=== PATIENT | male | born 1950 | race American Indian/Alaskan Native ===

== ENCOUNTER 2019-01-09 13:01 | Inpatient (IN) | payer MEDICARE ==
[2019-01-09] MEDS ORDERED: VALIUM IV ONE (13:25)
[2019-01-09] MEDS ORDERED: ATIVAN IV PRN ×2 (13:25)
--- NOTE | 2019-01-09 13:28 | Emergency Department Report ---
ED General Adult HPI - General Chief complaint: Seizure Stated complaint: SEIZURE Time Seen by Provider: 01/09/19 13:20 Source: patient, family, EMS (verbal report received from EMS.ems notes not available at time of chart dictation), RN notes reviewed, old records reviewed Mode of arrival: Stretcher Limitations: Physical Limitation - History of Present Illness Initial comments: This is a 68-year-old gentleman. His past medical history includes alcohol dependence, alcohol withdrawal seizure, and I have evaluated him in the past. Please see my note from 11/08/2016. The patient is brought to the hospital by EMS. His daughter contacted 911 becau se the patient was seizing in bed. There is no history of trauma. Patient indicates he did not fall. This is corroborated by EMS and by daughter. His last drink was yesterday. He typically drinks at least a sixpack every day. He denies physical pain at this time. He is not nauseous, he denies chest pain, he denies abdominal pain, he denies homicidality, suicidality. The patient is not quite certain if he is interested in detox therapy at this time. He does admit to feeling shaky and tremulous. -: Sudden Severity scale (0 -10): 0 Consistency: now resolved Improves with: none Worsens with: none - Related Data Previous Rx's Medication Instructions Recorded Last Taken Type Folic Acid [Folvite] 1 mg PO QDAY #30 tablet 11/10/16 Unknown Rx Multivitamin Tab [Multiple Vitamin 1 each PO QDAY #30 tablet 11/10/16 Unknown Rx TAB (Theragran)] Thiamine [Vitamin B-1] 100 mg PO QDAY #30 tablet 11/10/16 Unknown Rx Allergies Allergy/AdvReac Type Severity Reaction Status Date / Time No Known Allergies Allergy Verified 11/08/16 12:38 ED Review of Systems ROS: Stated complaint: SEIZURE Other details as noted in HPI Constitutional: malaise Eyes: denies: eye discharge ENT: denies: epistaxis Cardiovascular: denies: chest pain Gastrointestinal: denies: abdominal pain, nausea, vomiting Genitourinary: denies: dysuria Musculoskeletal: denies: back pain Skin: denies: lesions Neurological: weakness Psychiatric: denies: homicidal thoughts, suicidal thoughts ED Past Medical Hx - Past Medical History Previous Medical History?: Yes Hx Hypertension: Yes Hx Congestive Heart Failure: No Hx Diabetes: No Hx Asthma: No Hx COPD: No Additional medical history: alcohol withdrawal - Surgical History Past Surgical History?: No - Social History Smoking Status: Never Smoker Substance Use Type: Alcohol - Medications Home Medications: Home Medications Medication Instructions Recorded Confirmed Last Taken Type Folic Acid [Folvite] 1 mg PO QDAY #30 tablet 11/10/16 Unknown Rx Multivitamin Tab [Multiple Vitamin 1 each PO QDAY #30 tablet 11/10/16 Unknown Rx TAB (Theragran)] Thiamine [Vitamin B-1] 100 mg PO QDAY #30 tablet 11/10/16 Unknown Rx ED Physical Exam - General Limitations: No Limitations, Physical Limitation General appearance: alert, anxious - Head Head exam: Present: atraumatic, normocephalic - Eye Eye exam: Present: normal appearance, PERRL, EOMI. Absent: nystagmus - ENT ENT exam: Present: normal exam, normal orophraynx, mucous membranes dry, normal external ear exam - Neck Neck exam: Present: normal inspection, full ROM. Absent: tenderness, meningismus - Respiratory Respiratory exam: Present: normal lung sounds bilaterally. Absent: respiratory distress - Cardiovascular Cardiovascular Exam: Present: normal rhythm, tachycardia, normal heart sounds. Absent: systolic murmur, diastolic murmur, rubs, gallop - GI/Abdominal GI/Abdominal exam: Present: soft. Absent: distended, tenderness, guarding, rebound, rigid, pulsatile mass - Rectal Rectal exam: Present: deferred - Extremities Exam Extremities exam: Present: normal inspection, full ROM, other (2+ pulses noted in the bilateral upper, lower extremities. Compartments soft. No long bony tenderness. The pelvis is stable.). Absent: pedal edema, joint swelling, calf tenderness - Back Exam Back exam: Present: normal inspection, full ROM. Absent: tenderness, CVA tenderness (R), paraspinal tenderness, vertebral tenderness - Neurological Exam Neurological exam: Present: alert (patient has tremors in upper and lower extremities. Tongue fasciculations noted.), oriented X3, other (2+ pulses noted in the bilateral upper, lower extremities. Compartments soft. No long bony tenderness. The pelvis is stable.). Absent: motor sensory deficit - Psychiatric Psychiatric exam: Present: anxious. Absent: homicidal ideation, suicidal ideation - Skin Skin exam: Present: warm, dry, intact, normal color. Absent: rash ED Course Vital Signs 01/09/19 01/09/19 01/09/19 13:16 13:28 13:30 Temperature 99.1 F Pulse Rate 127 H 93 H Respiratory 16 13 12 Rate Blood Pressure 162/78 Blood Pressure 168/95 [Right] O2 Sat by Pulse 99 99 98 Oximetry - Reevaluation(s) Reevaluation #1: 01/09/19 13:38 Differential diagnosis, including not limited to: Alcohol withdrawal seizure, dehydration, pneumonia, urinary tract infection, electrolyte derangement, intracranial lesion Assessment and plan: 68-year-old gentleman, clinically sober at this time, no history of trauma, known history of alcohol withdrawal seizures. The patient has a low-grade temperature, and is tachycardic. He is not encephalopathic at this time. He exhibits decision-making capacity at this time. I have recommended admission to the hospital for presumed severe alcohol withdrawal. We will obtain screening laboratory studies, urinalysis, EKG, noncontrast CT scan of the brain. Discussed with the patient and family, who verbalized understanding. He will be started on alcohol withdrawal protocol, and he will be given 5 mg of Valium. Does not meet 1013 criteria this time. 01/09/19 13:43 Reevaluation #2: 01/09/19 14:[address] scan of the brain is negative for acute disease. X-ray of the chest was negative for acute disease. Reevaluation #3: 01/09/19 14:41 Laboratory studies reviewed and appreciated. Lactic acidosis likely secondary to alcohol withdrawal. Do not suspect invasive bacterial illness at this time. May also be secondary to starvation. Hypomagnesemia noted. Hyperammonemia noted. Hospital physician, Dr. Schumacher has accepted the patient to the [facility]. ED Medical Decision Making - Lab Data Result diagrams: 01/09/19 13:23 01/09/19 13:29 Vital Signs 01/09/19 13:16 Temperature 99.1 F Pulse Rate 127 H Respiratory 16 Rate Blood Pressure 168/95 [Right] O2 Sat by Pulse 99 Oximetry - EKG Data EKG shows normal: sinus rhythm Rate: tachycardia - EKG Data 01/09/19 13:44 Sinus rhythm, 86 bpm, left axis deviation, QTC prolonged, ST elevation, left ventricular hypertrophy, abnormal EKG, not complaining of chest pain, appears unchanged from prior EKG from 11/08/2016. - Radiology Data Radiology results: pending Critical Care Time: Yes Critical care time in (mins) excluding proc time.: 35 Critical care attestation.: If time is entered above; I have spent that time in minutes in the direct care of this critically ill patient, excluding procedure time. ED Disposition Clinical Impression: Seizures, Alcohol withdrawal, Malnutrition, Debility, Hypomagnesemia Disposition: DC-09 OP ADMIT IP TO THIS HOSP Is pt being admited?: Yes Condition: Fair
[2019-01-09 13:50] LABS: Basophils % (Auto) 0.7 % (0.0-1.8); Eosinophils % (Auto) 0.4 % (0.0-4.3); Hematocrit 37.7 % (35.5-45.6); Hemoglobin 12.7 gm/dl (11.8-15.2); Lymphocytes % (Auto) 31.6 % (13.4-35.0); Mean Corpuscular HGB Conc 34 % (32-34); Mean Corpuscular Volume 100 fl (84-94); Monocytes # (Auto) 0.6 K/mm3 (0.0-0.8); Monocytes % (Auto) 9.3 % (0.0-7.3); Platelet Count 139 K/mm3 (140-440); Red Blood Count 3.77 M/mm3 (3.65-5.03); Red Cell Distribution Width 13.4 % (13.2-15.2)
--- NOTE | 2019-01-09 13:59 | XRay Report ---
Single chest are compared to 11/08/16. History:ETOH withdrawal. Findings: Normal cardiomediastinal silhouette. Trachea is midline. No consolidation, pneumothorax or pleural effusion. Impression: No acute cardiopulmonary findings.
[2019-01-09] MEDS ORDERED: D5/0.45NS 1,000 ML IV SCH (14:00)
--- NOTE | 2019-01-09 14:10 | Cat Scan Report ---
CT scan of head without IV contrast: History: Seizure. EtOH. Findings: Ventricles are normal in size midline location. Mild cortical atrophy. No acute anemia, hemorrhage or mass. No extra axial fluid collection. Normal visualized brain stem and cerebellum. Normal visualized sinuses and mastoid air cells. Impression: Mild cortical atrophy. No acute abnormality .
[2019-01-09 14:17] LABS: Albumin 4.5 g/dL (3.9-5); BUN/Creatinine Ratio 6; Blood Urea Nitrogen 6 mg/dL (9-20); Calcium 9.3 mg/dL (8.4-10.2); Hemolysis Index 96
[2019-01-09 14:25] LABS: Bilirubin,Direct < 0.2 mg/dL (0-0.2)
[2019-01-09 14:26] LABS: Alanine Aminotransferase 43 units/L (7-56)
[2019-01-09] MEDS: ATIVAN IV PRN ×3 (14:35→23:33)
[2019-01-09] MEDS ORDERED: MAGNESIUM SULFATE 2GM/50ML 2 GM/50 ML BAG IV ONE (14:42)
[2019-01-09] MEDS ORDERED: CEPHULAC PO ONE (14:42)
--- NOTE | 2019-01-09 14:55 | History and Physical Report ---
History of Present Illness Chief complaint: Confusion History of present illness: 68 YO Male with HTN, Nicotine Dependence, ETOH Abuse presents to ED for evaluation. Pt is confused and unable to provide history. Pt history taken from family, as well as ED staff. As per staff, the patient was found by his daughter confused, and actively having a seizure this morning. EMS was notified, and upon arrival the patient was found to be in distress and transported to [facility]. Pt seen and evaluated in ED and found to have Encephalopathy as well as ETOH Withdrawl complicated by Seizure Disorder. As per daughter, the patient usually drinks a six pack of beer daily and his last drink was yesterday. No reports of fever, chills, CP, Palpitations, Trauma, Productive cough, recent ill contacts. Pt admitted to [facility] and initiated on CIWA Protocol in ED. Pt is tremulous and confused on exam. Pt is able to protect his airway. Past History Past Medical History: hypertension Past Surgical History: No surgical history, Other (reviewed) Social history: , smoking, alcohol abuse Family history: hypertension Medications and Allergies Allergies Allergy/AdvReac Type Severity Reaction Status Date / Time No Known Allergies Allergy Verified 11/08/16 12:38 Home Medications Medication Instructions Recorded Confirmed Last Taken Type Folic Acid [Folvite] 1 mg PO QDAY #30 tablet 11/10/16 Unknown Rx Multivitamin Tab [Multiple Vitamin 1 each PO QDAY #30 tablet 11/10/16 Unknown Rx TAB (Theragran)] Thiamine [Vitamin B-1] 100 mg PO QDAY #30 tablet 11/10/16 Unknown Rx Active Meds: Active Medications Dextrose/Sodium Chloride (D5/0.45ns) 1,000 mls @ 0 mls/hr IV DIRECT [facility] Last Admin: 01/09/19 13:52 Dose: 1,000 mls/hr Documented by: Magnesium Sulfate (Magnesium Sulfate 2gm/50ml) 2 gm in 50 mls @ 100 mls/hr IV ONCE ONE Stop: 01/09/19 15:11 Lorazepam (Ativan) 2 mg IV Q1HR PRN PRN Reason: CIWA-Ar 8-15 Last Admin: 01/09/19 14:35 Dose: 2 mg Documented by: Lorazepam (Ativan) 4 mg IV Q1HR PRN PRN Reason: CIWA-Ar 16-25 Lorazepam (Ativan) 4 mg IV Q15MIN PRN PRN Reason: CIWA-Ar >25 Review of Systems ROS unobtainable: due to mental status Exam - Constitutional Vitals: Temp Pulse Resp BP Pulse Ox 99.1 F 93 H 12 162/78 98 01/09/19 13:16 01/09/19 13:30 01/09/19 13:30 01/09/19 13:30 01/09/19 13:30 General appearance: Present: mild distress - EENT Eyes: Present: PERRL ENT: hearing intact, clear oral mucosa - Neck Neck: Present: supple, normal ROM - Respiratory Respiratory effort: normal Respiratory: bilateral: CTA - Cardiovascular Rhythm: other (tachycardia) Heart Sounds: Present: S1 & S2. Absent: rub, click - Extremities Extremities: pulses symmetrical, No edema Peripheral Pulses: within normal limits - Abdominal General gastrointestinal: Present: soft, non-tender, non-distended, normal bowel sounds Male genitourinary: Present: normal - Integumentary Integumentary: Present: clear, warm, dry - Musculoskeletal Musculoskeletal: generalized weakness - Psychiatric Psychiatric: no appropriate mood/affect, no intact judgment & insight, no memory intact - Neurologic Neurologic: CNII-XII intact, moves all extremities, no gait normal Results - Labs CBC & Chem 7: 01/09/19 13:23 01/09/19 13:29 Labs: Abnormal lab results 01/09/19 01/09/19 01/09/19 Range/Units 13:23 13:28 13:29 MCV 100 H (84-94) fl MCH 34 H (28-32) pg Plt Count 139 L (140-440) K/mm3 Terry % (Auto) 9.3 H (0.0-7.3) % Chloride 96.9 L (98-107) mmol/L Carbon Dioxide 14 L (22-30) mmol/L BUN 6 L (9-20) mg/dL Glucose 139 H (75-100) mg/dL Lactic Acid (0.7-2.0) mmol/L Magnesium 1.50 L (1.7-2.3) mg/dL AST 142 H (5-40) units/L Ammonia 152.0 H (25-60) umol/L Total Creatine Kinase 285 H (55-170) units/L Total Protein 8.3 H (6.3-8.2) g/dL Salicylates (2.8-20.0) mg/dL Acetaminophen (10.0-30.0) ug/mL 01/09/19 01/09/19 01/09/19 Range/Units 13:29 13:30 13:30 MCV (84-94) fl MCH (28-32) pg Plt Count (140-440) K/mm3 [place] % (Auto) (0.0-7.3) % Chloride (98-107) mmol/L Carbon Dioxide (22-30) mmol/L BUN (9-20) mg/dL Glucose (75-100) mg/dL Lactic Acid 13.40 H* (0.7-2.0) mmol/L Magnesium (1.7-2.3) mg/dL AST (5-40) units/L Ammonia (25-60) umol/L Total Creatine Kinase (55-170) units/L Total Protein (6.3-8.2) g/dL Salicylates < 0.3 L (2.8-20.0) mg/dL Acetaminophen < 5.0 L (10.0-30.0) ug/mL Assessment and Plan - Patient Problems (1) Alcoholic encephalopathy Current Visit: No Status: Acute Plan to address problem: CT head, neuro check, aspiration precaution, fall precautions, (2) Acidosis Current Visit: Yes Status: Acute Plan to address problem: IVF resuscitation therapy, supportive care. (3) Increased ammonia level Current Visit: Yes Status: Acute Plan to address problem: Supportive care, neuro checks, repeat ammonia level in AM. (4) Seizure disorder Current Visit: Yes Status: Acute Plan to address problem: Treat ETOH withdrawl, Atival Prn, Seizure precautions, (5) Alcohol withdrawal Onset Date: 02/13/14 Current Visit: Yes Status: Acute Qualifiers: Complication of substance-induced condition: with perceptual disturbance Qualified Code(s): F10.232 - Alcohol dependence with withdrawal with perceptual disturbance Plan to address problem: Thiamine, folic acid, multivitamin, CIWA protocol, seizure precautions, IVF resuscitation therpay. (6) Hypomagnesemia Current Visit: Yes Status: Acute Plan to address problem: IV magnesium repleted in ED, (7) DVT prophylaxis Current Visit: Yes Status: Acute Plan to address problem: SCD to BLE while in bed, Prophylactic lovenox
[2019-01-09 15:11] LABS: Bilirubin,Urine NEG (Negative); Blood,Urine SM (Negative); Color,Urine Yellow (Yellow); Hyaline Casts,Urine 1 /LPF; Mucus,Urine FEW /HPF; Protein,Urine <15 mg/dL mg/dL (Negative); WBC,Urine < 1.0 /HPF (0.0-6.0)
[2019-01-09] MEDS ORDERED: PROVENTIL IH PRN (15:38)
[2019-01-09] MEDS ORDERED: TYLENOL PO PRN (15:38)
[2019-01-09] MEDS ORDERED: SODIUM CHLORIDE FLUSH SYRINGE 10 ML IV PRN (15:38)
[2019-01-09] MEDS ORDERED: ZOFRAN IV PRN (15:38)
[2019-01-09] MEDS: NACL 0.45% 1000 ML 1,000 ML IV SCH (16:19)
[2019-01-09] MEDS ORDERED: VITAMIN B-1 100 MG, FOLVITE 1 MG, INFUVITE 10 ML in NACL 0.9% 1000 ML 1,000 ML IV ONE (19:16)
[2019-01-09] MEDS: PEPCID PO SCH (21:26)
[2019-01-09] MEDS: SODIUM CHLORIDE FLUSH SYRINGE 10 ML IV SCH (21:27)
[2019-01-09] MEDS ORDERED: LOVENOX SUB-Q SCH (22:00)
[2019-01-10 07:56] VITALS: BP 184/83
[2019-01-10] MEDS: NACL 0.45% 1000 ML 1,000 ML IV SCH (08:57)
[2019-01-10] MEDS: PEPCID PO SCH (09:00)
[2019-01-10] MEDS: SODIUM CHLORIDE FLUSH SYRINGE 10 ML IV SCH (09:00)
--- NOTE | 2019-01-10 09:28 | Progress Note ---
Assessment and Plan / Alcoholic encephalopathy CT head negative, cont neuro check, aspiration precaution, fall precautions, /Metabolic Acidosis IVF resuscitation therapy, supportive care. / Increased ammonia level Abdominal US ordered cont Supportive care, neuro checks, monitor ammonia level / Seizure disorder Treat ETOH withdrawl, Atival Prn, Seizure precautions, /Alcohol withdrawal: cont Thiamine, folic acid, multivitamin, CIWA protocol, seizure precautions, IVF resuscitation therpay. / Hypomagnesemia IV magnesium repleted in ED, / DVT prophylaxis SCD to BLE while in bed, Prophylactic lovenox Subjective Date of service: 01/10/19 Interval history: patient seen and examined tolerating diet still unsteady vick denies chest pain psych eval pending, Objective - Exam Narrative Exam: General appearance: Present: mild distress - EENT Eyes: Present: PERRL ENT: hearing intact, clear oral mucosa - Neck Neck: Present: supple, normal ROM - Respiratory Respiratory effort: normal Respiratory: bilateral: CTA - Cardiovascular Rhythm: other (tachycardia) Heart Sounds: Present: S1 & S2. Absent: rub, click - Extremities Extremities: pulses symmetrical, No edema Peripheral Pulses: within normal limits - Abdominal General gastrointestinal: Present: soft, non-tender, non-distended, normal bowel sounds Male genitourinary: Present: normal - Integumentary Integumentary: Present: clear, warm, dry - Musculoskeletal Musculoskeletal: generalized weakness - Psychiatric Psychiatric: no appropriate mood/affect, no intact judgment & insight, no memory intact - Neurologic Neurologic: CNII-XII intact, moves all extremities, no gait normal - Constitutional Vitals: Vital Signs - 12hr 01/09/19 01/09/19 01/09/19 21:35 21:36 21:40 Temperature Pulse Rate 65 72 61 Respiratory 16 15 11 L Rate Blood Pressure 128/92 128/92 Blood Pressure [Right] O2 Sat by Pulse Oximetry 01/09/19 01/09/19 01/10/19 21:50 22:00 03:12 Temperature Pulse Rate 64 71 70 Respiratory 17 12 Rate Blood Pressure 128/92 114/75 Blood Pressure [Right] O2 Sat by Pulse 100 Oximetry 01/10/19 01/10/19 03:15 07:40 Temperature 98.6 F 99.2 F Pulse Rate 65 Respiratory 20 20 Rate Blood Pressure 184/83 Blood Pressure 156/81 [Right] O2 Sat by Pulse 100 Oximetry - Labs CBC & Chem 7: 05/02/19 13:23 01/10/19 09:28 Labs: Abnormal lab results 01/09/19 01/09/19 01/09/19 Range/Units 13:23 13:28 13:29 MCV 100 H (84-94) fl MCH 34 H (28-32) pg Plt Count 139 L (140-440) K/mm3 [place] % (Auto) 9.3 H (0.0-7.3) % Chloride 96.9 L (98-107) mmol/L Carbon Dioxide 14 L (22-30) mmol/L BUN 6 L (9-20) mg/dL Glucose 139 H (75-100) mg/dL Lactic Acid (0.7-2.0) mmol/L Magnesium 1.50 L (1.7-2.3) mg/dL AST 142 H (5-40) units/L Ammonia 152.0 H (25-60) umol/L Total Creatine Kinase 285 H (55-170) units/L Total Protein 8.3 H (6.3-8.2) g/dL Salicylates (2.8-20.0) mg/dL Acetaminophen (10.0-30.0) ug/mL 01/09/19 01/09/19 01/09/19 Range/Units 13:29 13:30 13:30 MCV (84-94) fl MCH (28-32) pg Plt Count (140-440) K/mm3 [place] % (Auto) (0.0-7.3) % Chloride (98-107) mmol/L Carbon Dioxide (22-30) mmol/L BUN (9-20) mg/dL Glucose (75-100) mg/dL Lactic Acid 13.40 H* (0.7-2.0) mmol/L Magnesium (1.7-2.3) mg/dL AST (5-40) units/L Ammonia (25-60) umol/L Total Creatine Kinase (55-170) units/L Total Protein (6.3-8.2) g/dL Salicylates < 0.3 L (2.8-20.0) mg/dL Acetaminophen < 5.0 L (10.0-30.0) ug/mL 01/09/19 01/09/19 Range/Units 14:22 16:24 MCV (84-94) fl MCH (28-32) pg Plt Count (140-440) K/mm3 [place] % (Auto) (0.0-7.3) % Chloride (98-107) mmol/L Carbon Dioxide (22-30) mmol/L BUN (9-20) mg/dL Glucose (75-100) mg/dL Lactic Acid 5.80 H* 2.70 H* (0.7-2.0) mmol/L Magnesium (1.7-2.3) mg/dL AST (5-40) units/L Ammonia (25-60) umol/L Total Creatine Kinase (55-170) units/L Total Protein (6.3-8.2) g/dL Salicylates (2.8-20.0) mg/dL Acetaminophen (10.0-30.0) ug/mL
[2019-01-10] MEDS ORDERED: THERAGRAN Tab PO SCH (10:00)
[2019-01-10] MEDS ORDERED: VITAMIN B-1 PO SCH (10:00)
[2019-01-10] MEDS ORDERED: CEPHULAC PO SCH (10:00)
[2019-01-10] MEDS ORDERED: FOLVITE PO SCH (10:00)
[2019-01-10 10:42] LABS: BUN/Creatinine Ratio 6; Blood Urea Nitrogen 4 mg/dL (9-20); Hemolysis Index 50
--- NOTE | 2019-01-10 12:48 | Consultation ---
History of Present Illness - Reason for Consult Consult date: 01/10/19 Reason for consult: Mental Health Evaluation Requesting physician: SUSANNAH ATKINSON - Chief Complaint Chief complaint: "I am well" - History of Present Psychiatric Illness 68 y.o. AA male who presented to the ER for possible seizure activity. Psychiatry was consulted to see the patient from ETOH dependency. Today the patient is calm and cooperative during the assessment. He stated that he started drinking alcohol (etoh) over 30 yrs ago. He stated that he only drink "beer." He stated that he enjoy drinking, but is aware of the medical issues that can stem from excessive alcohol consumption (etoh). He stated, "I can handle my liquor." He denies rehab services in the past when asked. He denies any mood do's. He denies SI/HI's and AVH's. He denies erratic sleep and a poor appetite. He denies recreational drug use. Medications and Allergies Allergies Allergy/AdvReac Type Severity Reaction Status Date / Time No Known Allergies Allergy Verified 11/08/16 12:38 Home Medications Medication Instructions Recorded Confirmed Last Taken Type No Known Home Medications [No 01/10/19 01/10/19 Unknown History Reported Home Medications] Active Meds: Active Medications Acetaminophen (Tylenol) 650 mg PO Q4H PRN PRN Reason: Pain MILD(1-3)/Fever >100.5/WONG Albuterol (Proventil) 2.5 mg IH Q4HRT PRN PRN Reason: Shortness Of Breath Enoxaparin Sodium (Lovenox) 40 mg SUB-Q QDAY@2200 [facility] Last Admin: 01/09/19 21:27 Dose: 40 mg Documented by: Famotidine (Pepcid) 20 mg PO BID [facility] Last Admin: 01/10/19 09:00 Dose: 20 mg Documented by: Folic Acid (Folvite) 1 mg PO QDAY [facility] Last Admin: 01/10/19 09:00 Dose: 1 mg Documented by: Dextrose/Sodium Chloride (D5/0.45ns) 1,000 mls @ 0 mls/hr IV DIRECT [facility] Last Admin: 01/09/19 13:52 Dose: 1,000 mls/hr Documented by: Sodium Chloride (Nacl 0.45% 1000 Ml) 1,000 mls @ 75 mls/hr IV DIRECT [facility] Last Admin: 01/10/19 08:57 Dose: 75 mls/hr Documented by: Lactulose (Cephulac) 20 gm PO QDAY [facility] Last Admin: 01/10/19 09:52 Dose: 20 gm Documented by: Lorazepam (Ativan) 2 mg IV Q1HR PRN PRN Reason: CIWA-Ar 8-15 Last Admin: 01/09/19 23:33 Dose: 2 mg Documented by: Lorazepam (Ativan) 4 mg IV Q1HR PRN PRN Reason: CIWA-Ar 16-25 Lorazepam (Ativan) 4 mg IV Q15MIN PRN PRN Reason: CIWA-Ar >25 Multivitamins (Theragran Tab) 1 each PO QDAY [facility] Last Admin: 01/10/19 09:00 Dose: 1 each Documented by: Ondansetron HCl (Zofran) 4 mg IV Q8H PRN PRN Reason: Nausea And Vomiting Sodium Chloride (Sodium Chloride Flush Syringe 10 Ml) 10 ml IV BID [facility] Last Admin: 01/10/19 09:00 Dose: Not Given Documented by: Sodium Chloride (Sodium Chloride Flush Syringe 10 Ml) 10 ml IV PRN PRN PRN Reason: LINE FLUSH Thiamine HCl (Vitamin B-1) 100 mg PO QDAY [facility] Last Admin: 01/10/19 09:00 Dose: 100 mg Documented by: Past psychiatric history - Past Medical History Past Medical History: hypertension Past Surgical History: No surgical history - past Psychiatric treatment and history psychiatric treatment history: Hx of Alcohol Abuse. Denies a fam psy hx. - Social History Social history: lives with family Mental Status Exam - Vital signs Last Vital Signs Temp 99.2 F 01/10/19 07:40 Pulse 85 01/10/19 09:56 Resp 20 01/10/19 07:40 BP 184/83 01/10/19 07:40 Pulse Ox 100 01/10/19 07:40 - Exam Narrative exam: MSE: Appearance: calm, cooperative Behavior: regular eye contact Speech: regular rate and tone Mood: "okay" Affect: congruent to mood Thought Process: logical Thought Content: denies SI/HI's and AVH's Motor Activity: ambulatory Cognition: A/O x3 Insight: fair Judgment: fair Results Result Diagrams: 01/09/19 13:23 01/10/19 09:28 Abnormal lab results 01/09/19 01/09/19 01/09/19 Range/Units 13:23 13:28 13:29 MCV 100 H (84-94) fl MCH 34 H (28-32) pg Plt Count 139 L (140-440) K/mm3 [place] % (Auto) 9.3 H (0.0-7.3) % Sodium (137-145) mmol/L Chloride 96.9 L (98-107) mmol/L Carbon Dioxide 14 L (22-30) mmol/L BUN 6 L (9-20) mg/dL Creatinine (0.8-1.5) mg/dL Glucose 139 H (75-100) mg/dL Lactic Acid (0.7-2.0) mmol/L Magnesium 1.50 L (1.7-2.3) mg/dL AST 142 H (5-40) units/L Ammonia 152.0 H (25-60) umol/L Total Creatine Kinase 285 H (55-170) units/L Total Protein 8.3 H (6.3-8.2) g/dL Salicylates (2.8-20.0) mg/dL Acetaminophen (10.0-30.0) ug/mL 01/09/19 01/09/19 01/09/19 Range/Units 13:29 13:30 13:30 MCV (84-94) fl MCH (28-32) pg Plt Count (140-440) K/mm3 [place] % (Auto) (0.0-7.3) % Sodium (137-145) mmol/L Chloride (98-107) mmol/L Carbon Dioxide (22-30) mmol/L BUN (9-20) mg/dL Creatinine (0.8-1.5) mg/dL Glucose (75-100) mg/dL Lactic Acid 13.40 H* (0.7-2.0) mmol/L Magnesium (1.7-2.3) mg/dL AST (5-40) units/L Ammonia (25-60) umol/L Total Creatine Kinase (55-170) units/L Total Protein (6.3-8.2) g/dL Salicylates < 0.3 L (2.8-20.0) mg/dL Acetaminophen < 5.0 L (10.0-30.0) ug/mL 01/09/19 01/09/19 01/10/19 Range/Units 14:22 16:24 09:28 MCV (84-94) fl MCH (28-32) pg Plt Count (140-440) K/mm3 [place] % (Auto) (0.0-7.3) % Sodium 134 L (137-145) mmol/L Chloride 94.7 L (98-107) mmol/L Carbon Dioxide (22-30) mmol/L BUN 4 L (9-20) mg/dL Creatinine 0.7 L (0.8-1.5) mg/dL Glucose (75-100) mg/dL Lactic Acid 5.80 H* 2.70 H* (0.7-2.0) mmol/L Magnesium (1.7-2.3) mg/dL AST (5-40) units/L Ammonia (25-60) umol/L Total Creatine Kinase (55-170) units/L Total Protein (6.3-8.2) g/dL Salicylates (2.8-20.0) mg/dL Acetaminophen (10.0-30.0) ug/mL All other labs normal. Assessment and Plan Assessment and plan: Impression: Hx of Alcohol Use DO. Today the patient is calm and cooperative during the assessment. No acute withdrawals noted (etoh). Recommendation/Plan: Discuissed the importance to abstain from alcohol consumption (etoh), he verbalized understanding. Dispo: The patient can follow up at [facility] for rehab services. Staffed with Dr Phoebe Fontanez.
[2019-01-10 16:03] LABS: Hepatitis B Surface Antigen Non-Reactive (Negative); Hepatitis C Virus Antibody Non-Reactive (NonReactive)
[2019-01-10] MEDS: ATIVAN IV PRN (16:42)
--- NOTE | 2019-01-11 04:23 | Ultrasound Report ---
PROCEDURE: US ABDOMEN COMPLETE TECHNIQUE: Real-time sonography in multiple planes of the abdomen was performed with image documenta tion. HISTORY: possible cirrhosis COMPARISONS: None . FINDINGS: Liver: The liver is echogenic suggesting fatty infiltration. There are cysts in the right lobe measur ing up to 2.9 cm. There is no solid mass. The liver size was not measured. Gallbladder: Fluid filled. No gallstones, wall thickening, pericholecystic fluid, or sonographic Mur phy's sign. Intrahepatic bile ducts: Normal caliber . Extrahepatic bile ducts: Normal caliber. Pancreas: Normal as visualized with suboptimal depiction of the pancreatic tail. Aorta: Visualized portions appear normal. IVC: Visualized portions appear normal. RIGHT kidney: Normal echotexture. No focal renal mass, calculus, or hydronephrosis. Length: 10.4 c m. LEFT kidney: Normal echotexture. No focal renal mass, calculus, or hydronephrosis. Length: 9.8 cm. Spleen: Normal size and echotexture. No focal lesions. Intraperitoneal fluid: None . Other: None . IMPRESSION: Liver is fatty with cysts in the right lobe. There is no solid liver mass. There is no cholelithiasis or cholecystitis. There is no biliary ductal dilatation.. This document is electronically signed by Xu Daniel MD., Jan 11 2019 04:21:07 AM ET
--- NOTE | 2019-01-11 12:02 | Event Note ---
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
--- NOTE | 2019-01-11 12:04 | Discharge Summary ---
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 As per ER staff, the patient was found by his daughter confused, and actively having a seizure this morning. EMS was notified, and transported to [facility]. Patient seen and evaluated in ED and found to have Encephalopathy as well as ETOH Withdrawl complicated by Seizure Disorder. He was placed on as needed ativan iv for seizure, placed on alcohol withdrawal protocol, consulted psych. Patient was improving clinically but he left AMA before completing evaluation and management. Discharge diagnosis: / Alcoholic encephalopathy /Metabolic Acidosis / hyperammonemia / Seizure disorder, acute onset, likely from alcohol /Alcohol withdrawal: / Hypomagnesemia / DVT prophylaxis Disposition: DC-07 LEFT AGAINST MED ADVICE Core Measure Documentation - Palliative Care Palliative Care/ Comfort Measures: Not Applicable - Core Measures Any of the following diagnoses?: none Exam - Constitutional Vitals: Temp Pulse Resp BP Pulse Ox 99.2 F 85 18 184/83 100 01/10/19 07:40 01/10/19 09:56 01/10/19 18:00 01/10/19 07:40 01/10/19 18:00 Plan Follow up with: ASHLEY ALBA [Other] - 3-5 Days
== END 2019-01-10 19:45 | disposition left against medical advice (07) | DRG 57 ==
LOC: ED 13:01 → 2B-ACE 15:38
PROVIDERS: ADMIT Internal Medicine; ATTEND Internal Medicine
DX: G31.2 Degeneration of nervous system due to alcohol (principal); G40.509 Epileptic seizures related to external causes, not intractable, without status epilepticus; E87.2 Acidosis; F10.232 Alcohol dependence with withdrawal with perceptual disturbance; E46 Unspecified protein-calorie malnutrition; E72.20 Disorder of urea cycle metabolism, unspecified; I10 Essential (primary) hypertension; E83.42 Hypomagnesemia; F17.210 Nicotine dependence, cigarettes, uncomplicated; Z53.21 Procedure and treatment not carried out due to patient leaving prior to being seen by health care provider; Z68.20 Body mass index [BMI] 20.0-20.9, adult
CPT/HCPCS: 36415; 70450; 71045; 76700; 80048; 80074; 80076; 80320; 81001; 82140; 82550; 83735; 85025; 93005; 93010; 95819; 96365; 96375; G0378; G0480; J1650; J2060; J3360; J3411; J3475; J7030

== ENCOUNTER 2019-01-10 23:13 | Inpatient (IN) | payer MEDICARE ==
--- NOTE | 2019-01-10 23:54 | Emergency Department Report ---
ED General Adult HPI - General Chief complaint: Alcohol Stated complaint: MENTAL HEALTH Time Seen by Provider: 01/10/19 23:23 Source: patient, EMS Mode of arrival: Stretcher Limitations: Altered Mental Status - History of Present Illness Initial comments: This is a 68-year-old -[place]er male with a past history of alcohol abuse who is presenting with paramedics because he was found in someone's car at the fire station drinking. Patient when asked what his chief complaint is states that he keeps falling. 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 Patient's states that he also was trying to get into a car at some point with his cousin and his nephew. Patient is unable to give the timing of when this occurred or anyone's name. In actuality when reviewing the patient's chart patient was admitted to the hospital after having a seizure at home yesterday. Patient was admitted by Dr. Schumacher to the ACU unit. Patient's left AMA this morning. Patient when confronted with this information states that he does not remember having a seizure and that he was in the hospital but it was not yesterday. Patient is unable to say when he was in the hospital. Patient is a poor historian secondary to not being able to give clearcut history detailing his whereabouts and the last 48 hours. Patient's chart was reviewed from his previous admission. Patient had elevated ammonia level during this visit. Patient initially had a lactic acid that was elevated as well which was trending downward for the patient left AMA. CT of the head shows cortical atrophy but no other acute process. Severity scale (0 -10): 4 - Related Data Home Medications Medication Instructions Recorded Confirmed Last Taken No Known Home Medications [No 01/10/19 01/10/19 Unknown Reported Home Medications] Allergies Allergy/AdvReac Type Severity Reaction Status Date / Time No Known Allergies Allergy Verified 11/08/16 12:38 ED Review of Systems ROS: Stated complaint: MENTAL HEALTH Other details as noted in HPI Comment: Unobtainable due to pts medical conditions ED Past Medical Hx - Past Medical History Hx Hypertension: Yes Hx Congestive Heart Failure: No Hx Diabetes: Yes Hx Seizures: Yes Hx Asthma: No Hx COPD: No Additional medical history: alcohol withdrawal - Social History Smoking Status: Unknown if ever smoked Substance Use Type: Alcohol - Medications Home Medications: Home Medications Medication Instructions Recorded Confirmed Last Taken Type No Known Home Medications [No 01/10/19 01/10/19 Unknown History Reported Home Medications] ED Physical Exam - General Limitations: Altered Mental Status General appearance: alert, in no apparent distress, other (minor tremors) - Head Head exam: Present: atraumatic, normocephalic - Eye Eye exam: Present: normal appearance, PERRL, EOMI - ENT ENT exam: Present: mucous membranes moist - Neck Neck exam: Present: normal inspection - Respiratory Respiratory exam: Present: normal lung sounds bilaterally. Absent: respiratory distress, wheezes, rales, rhonchi, stridor - Cardiovascular Cardiovascular Exam: Present: regular rate, normal rhythm. Absent: systolic mur mur, diastolic murmur, rubs, gallop - GI/Abdominal GI/Abdominal exam: Present: soft, normal bowel sounds. Absent: distended, tenderness, guarding, rebound, rigid - Rectal Rectal exam: Present: deferred - Extremities Exam Extremities exam: Present: normal inspection - Back Exam Back exam: Present: normal inspection - Neurological Exam Neurological exam: Present: alert, altered, CN II-XII intact. Absent: motor sensory deficit - Psychiatric Psychiatric exam: Present: normal affect, normal mood - Skin Skin exam: Present: warm, dry, intact, normal color. Absent: rash ED Course Vital Signs 01/10/19 23:36 Temperature 99.5 F Pulse Rate 106 H Respiratory 18 Rate Blood Pressure 156/83 [Right] O2 Sat by Pulse 97 Oximetry ED Medical Decision Making - Lab Data Result diagrams: 01/10/19 Unknown 01/10/19 Unknown Lab Results 01/10/19 01/10/19 01/10/19 Range/Units Unknown Unknown Unknown WBC 6.4 (4.5-11.0) K/mm3 RBC 4.00 (3.65-5.03) M/mm3 Hgb 13.5 (11.8-15.2) gm/dl Hct 39.2 (35.5-45.6) % MCV 98 H (84-94) fl MCH 34 H (28-32) pg MCHC 34 (32-34) % RDW 13.1 L (13.2-15.2) % Plt Count 127 L (140-440) K/mm3 Lymph % (Auto) 12.2 L (13.4-35.0) % [place] % (Auto) 9.8 H (0.0-7.3) % Eos % (Auto) 0.1 (0.0-4.3) % Baso % (Auto) 0.6 (0.0-1.8) % Lymph # 0.8 L (1.2-5.4) K/mm3 [place] # 0.6 (0.0-0.8) K/mm3 Eos # 0.0 (0.0-0.4) K/mm3 Baso # 0.0 (0.0-0.1) K/mm3 Seg Neutrophils % 77.3 H (40.0-70.0) % Seg Neutrophils # 5.0 (1.8-7.7) K/mm3 Sodium 132 L (137-145) mmol/L Potassium 5.7 H D (3.6-5.0) mmol/L Chloride 92.1 L (98-107) mmol/L Carbon Dioxide 21 L (22-30) mmol/L Anion Gap 25 mmol/L BUN 8 L (9-20) mg/dL Creatinine 1.3 D (0.8-1.5) mg/dL Estimated GFR > 60 ml/min BUN/Creatinine Ratio 6 % Glucose 99 (75-100) mg/dL Calcium 9.5 (8.4-10.2) mg/dL Total Bilirubin 1.50 H (0.1-1.2) mg/dL AST 182 H (5-40) units/L ALT 52 (7-56) units/L Alkaline Phosphatase 89 (35-129) units/L Ammonia 71.0 H (25-60) umol/L Total Protein 8.7 H (6.3-8.2) g/dL Albumin 4.6 (3.9-5) g/dL Albumin/Globulin Ratio 1.1 % Plasma/Serum Alcohol (0-0.07) % 01/10/19 Range/Units Unknown WBC (4.5-11.0) K/mm3 RBC (3.65-5.03) M/mm3 Hgb (11.8-15.2) gm/dl Hct (35.5-45.6) % MCV (84-94) fl MCH (28-32) pg MCHC (32-34) % RDW (13.2-15.2) % Plt Count (140-440) K/mm3 Lymph % (Auto) (13.4-35.0) % [place] % (Auto) (0.0-7.3) % Eos % (Auto) (0.0-4.3) % Baso % (Auto) (0.0-1.8) % Lymph # (1.2-5.4) K/mm3 [place] # (0.0-0.8) K/mm3 Eos # (0.0-0.4) K/mm3 Baso # (0.0-0.1) K/mm3 Seg Neutrophils % (40.0-70.0) % Seg Neutrophils # (1.8-7.7) K/mm3 Sodium (137-145) mmol/L Potassium (3.6-5.0) mmol/L Chloride (98-107) mmol/L Carbon Dioxide (22-30) mmol/L Anion Gap mmol/L BUN (9-20) mg/dL Creatinine (0.8-1.5) mg/dL Estimated GFR ml/min BUN/Creatinine Ratio % Glucose (75-100) mg/dL Calcium (8.4-10.2) mg/dL Total Bilirubin (0.1-1.2) mg/dL AST (5-40) units/L ALT (7-56) units/L Alkaline Phosphatase (35-129) units/L Ammonia (25-60) umol/L Total Protein (6.3-8.2) g/dL Albumin (3.9-5) g/dL Albumin/Globulin Ratio % Plasma/Serum Alcohol < 0.01 (0-0.07) % - Radiology Data Radiology results: report reviewed (CT of the head was performed yesterday and spell was within normal limits) - Medical Decision Making Patient's ammonia level on admission yesterday was elevated to the 150s. It dropped to 38 prior to him leaving AGAINST MEDICAL ADVICE however is risen again. Patient's level today is 71. Patient's history of hepatic encephalopathy. He will be started on lactulose and to the hospitalist at this time. Critical care attestation.: If time is entered above; I have spent that time in minutes in the direct care of this critically ill patient, excluding procedure time. ED Disposition Clinical Impression: Alcoholic encephalopathy, Increased ammonia level, Hyperkalemia Altered mental status Qualifiers: Altered mental status type: unspecified Qualified Code(s): R41.82 - Altered mental status, unspecified Alcohol withdrawal Qualifiers: Complication of substance-induced condition: with delirium Qualified Code(s): F10.231 - Alcohol dependence with withdrawal delirium Disposition: 09 OP ADMIT IP TO THIS HOSP Is pt being admited?: Yes Does the pt Need Aspirin: No Condition: Stable Time of Disposition: 01:54
[2019-01-11 01:18] LABS: Albumin 4.6 g/dL (3.9-5); BUN/Creatinine Ratio 6; Blood Urea Nitrogen 8 mg/dL (9-20); Calcium 9.5 mg/dL (8.4-10.2); Hemolysis Index 449
[2019-01-11 01:20] LABS: Basophils % (Auto) 0.6 % (0.0-1.8); Eosinophils % (Auto) 0.1 % (0.0-4.3); Hematocrit 39.2 % (35.5-45.6); Hemoglobin 13.5 gm/dl (11.8-15.2); Lymphocytes # (Auto) 0.8 K/mm3 (1.2-5.4); Lymphocytes % (Auto) 12.2 % (13.4-35.0); Mean Corpuscular HGB Conc 34 % (32-34); Mean Corpuscular Volume 98 fl (84-94); Monocytes # (Auto) 0.6 K/mm3 (0.0-0.8); Monocytes % (Auto) 9.8 % (0.0-7.3); Platelet Count 127 K/mm3 (140-440); Red Cell Distribution Width 13.1 % (13.2-15.2)
[2019-01-11 01:31] LABS: Alanine Aminotransferase 52 units/L (7-56)
[2019-01-11] MEDS ORDERED: CEPHULAC PO ONE (01:38)
[2019-01-11] MEDS ORDERED: NACL 0.9% 1000 ML 1,000 ML IV ONE (01:38)
[2019-01-11] MEDS ORDERED: KIONEX PO ONE (01:38)
[2019-01-11] MEDS ORDERED: VALIUM IV ONE (01:54)
[2019-01-11] MEDS ORDERED: TYLENOL PO PRN (01:57)
[2019-01-11] MEDS ORDERED: ZOFRAN IV PRN (01:57)
[2019-01-11] MEDS ORDERED: SODIUM CHLORIDE FLUSH SYRINGE 10 ML IV PRN (01:57)
[2019-01-11] MEDS ORDERED: ATIVAN IV PRN (02:01)
--- NOTE | 2019-01-11 02:57 | History and Physical Report ---
History of Present Illness Chief complaint: Altered mental status History of present illness: Patient is a 68-year-old -[place] male with a past history of alcohol abuse who was brought to the ED via EMS on account of altered mental status. Of note, patient is unable to provide history. It was reported that he was found in someone's car at the fire station drinking. No other history could be obtained from the patient. Patient was admitted to the hospital about 2 days ago for possible seizure, however he left AGAINST MEDICAL ADVICE yesterday. Past History Past Medical History: hypertension, other (alcohol and tobacco abuse) Past Surgical History: Other (unable to obtain due to altered mental status) Social history: smoking, alcohol abuse Family history: other (unable to obtain due to altered mental status) Medications and Allergies Allergies Allergy/AdvReac Type Severity Reaction Status Date / Time No Known Allergies Allergy Verified 11/08/16 12:38 Home Medications Medication Instructions Recorded Confirmed Last Taken Type No Known Home Medications [No 01/10/19 01/10/19 Unknown History Reported Home Medications] Active Meds: Active Medications Acetaminophen (Tylenol) 650 mg PO Q4H PRN PRN Reason: Pain MILD(1-3)/Fever >100.5/WONG Dextrose/Sodium Chloride (D5ns) 1,000 mls @ 100 mls/hr IV DIRECT MAITE Folic Acid 1 mg/ Thiamine HCl 100 mg/ Multivitamins/Minerals 10 ml/ Sodium Chloride 1,011.2 mls @ 125 mls/hr IV Q24H MAITE Lorazepam (Ativan) 2 mg IV Q1H PRN PRN Reason: CIWA-Ar 8-15 Lorazepam (Ativan) 4 mg IV Q1H PRN PRN Reason: CIWA-Ar 16-25 Ondansetron HCl (Zofran) 4 mg IV Q8H PRN PRN Reason: Nausea And Vomiting Sodium Chloride (Sodium Chloride Flush Syringe 10 Ml) 10 ml IV BID MAITE Sodium Chloride (Sodium Chloride Flush Syringe 10 Ml) 10 ml IV PRN PRN PRN Reason: LINE FLUSH Review of Systems ROS unobtainable: due to mental status Exam - Constitutional Vitals: Temp Pulse Resp BP Pulse Ox 99.5 F 106 H 18 156/83 97 01/10/19 23:36 01/10/19 23:36 01/10/19 23:36 01/10/19 23:36 01/10/19 23:36 General appearance: Present: no acute distress, other (agitated and in restrain ts) - EENT Eyes: Present: PERRL, EOM intact ENT: hearing intact, clear oral mucosa - Neck Neck: Present: supple, normal ROM - Respiratory Respiratory effort: normal Respiratory: bilateral: CTA - Cardiovascular Rhythm: regular (with tachycardia) Heart Sounds: Present: S1 & S2. Absent: rub, click - Extremities Extremities: pulses symmetrical, No edema Peripheral Pulses: within normal limits - Abdominal General gastrointestinal: Present: soft, non-tender, non-distended, normal bowel sounds Male genitourinary: Present: deferred - Integumentary Integumentary: Present: clear, warm, dry - Musculoskeletal Musculoskeletal: gait normal, strength equal bilaterally - Psychiatric Psychiatric: agitated - Neurologic Neurologic: CNII-XII intact, moves all extremities Results - Labs CBC & Chem 7: 01/10/19 Unknown 01/10/19 Unknown Labs: Laboratory Last Values WBC 6.4 K/mm3 (4.5-11.0) 01/10/19 Unknown RBC 4.00 M/mm3 (3.65-5.03) 01/10/19 Unknown Hgb 13.5 gm/dl (11.8-15.2) 01/10/19 Unknown Hct 39.2 % (35.5-45.6) 01/10/19 Unknown MCV 98 fl (84-94) H 01/10/19 Unknown MCH 34 pg (28-32) H 01/10/19 Unknown MCHC 34 % (32-34) 01/10/19 Unknown RDW 13.1 % (13.2-15.2) L 01/10/19 Unknown Plt Count 127 K/mm3 (140-440) L 01/10/19 Unknown Lymph % (Auto) 12.2 % (13.4-35.0) L 01/10/19 Unknown [place] % (Auto) 9.8 % (0.0-7.3) H 01/10/19 Unknown Eos % (Auto) 0.1 % (0.0-4.3) 01/10/19 Unknown Baso % (Auto) 0.6 % (0.0-1.8) 01/10/19 Unknown Lymph # 0.8 K/mm3 (1.2-5.4) L 01/10/19 Unknown [place] # 0.6 K/mm3 (0.0-0.8) 01/10/19 Unknown Eos # 0.0 K/mm3 (0.0-0.4) 01/10/19 Unknown Baso # 0.0 K/mm3 (0.0-0.1) 01/10/19 Unknown Seg Neutrophils % 77.3 % (40.0-70.0) H 01/10/19 Unknown Seg Neutrophils # 5.0 K/mm3 (1.8-7.7) 01/10/19 Unknown Sodium 132 mmol/L (137-145) L 01/10/19 Unknown Potassium 5.7 mmol/L (3.6-5.0) H D 01/10/19 Unknown Chloride 92.1 mmol/L (98-107) L 01/10/19 Unknown Carbon Dioxide 21 mmol/L (22-30) L 01/10/19 Unknown Anion Gap 25 mmol/L 01/10/19 Unknown BUN 8 mg/dL (9-20) L 01/10/19 Unknown Creatinine 1.3 mg/dL (0.8-1.5) D 01/10/19 Unknown Estimated GFR > 60 ml/min 01/10/19 Unknown BUN/Creatinine Ratio 6 % 01/10/19 Unknown Glucose 99 mg/dL (75-100) 01/10/19 Unknown Calcium 9.5 mg/dL (8.4-10.2) 01/10/19 Unknown Total Bilirubin 1.50 mg/dL (0.1-1.2) H 01/10/19 Unknown AST 182 units/L (5-40) H 01/10/19 Unknown ALT 52 units/L (7-56) 01/10/19 Unknown Alkaline Phosphatase 89 units/L (35-129) 01/10/19 Unknown Ammonia 71.0 umol/L (25-60) H 01/10/19 Unknown Total Protein 8.7 g/dL (6.3-8.2) H 01/10/19 Unknown Albumin 4.6 g/dL (3.9-5) 01/10/19 Unknown Albumin/Globulin Ratio 1.1 % 01/10/19 Unknown Plasma/Serum Alcohol < 0.01 % (0-0.07) 01/10/19 Unknown Assessment and Plan Assessment and plan: Acute alcohol withdrawal -On [facility] protocol Acute toxic/metabolic encephalopathy -Likely secondary to the alcohol withdrawal -Head CT scan on 01/09/19 neg Hyperammonemia -Lactulose given, will recheck ammonia level Hyperkalemia -Kayexalate given -On IV fluid, will monitor potassium level Hyponatremia -On IV fluid, will monitor sodium level Transaminitis -Likely secondary to alcohol abuse -Follow up abdominal ultrasound done on 01/10/19 Hypertension -Stable -On PRN IV labetalol Polysubstance abuse (tobacco and alcohol) -Cessation recommended -On nicotine patch DVT prophylaxis with Lovenox Disposition: For discharge when medically stable Time spent: 38 minutes
[2019-01-11] MEDS ORDERED: 1: FOLVITE 1 MG, INFUVITE 10 ML, VITAMIN B-1 100 MG in NACL 0.9% 1000 ML 988.8 ML 2: NA IV SCH (03:00)
[2019-01-11] MEDS ORDERED: ATIVAN ONE (03:57)
[2019-01-11] MEDS: FOLVITE 1 MG, VITAMIN B-1 100 MG, INFUVITE 10 ML in NACL 0.9% 1000 ML 1,000 ML IV SCH (04:00)
[2019-01-11] MEDS: ATIVAN IV PRN ×2 (05:03→21:05)
[2019-01-11] MEDS: LOVENOX SUB-Q SCH (09:31)
[2019-01-11] MEDS: HABITROL TD SCH (09:31)
[2019-01-11] MEDS: SODIUM CHLORIDE FLUSH SYRINGE 10 ML IV SCH ×2 (09:31→21:07)
[2019-01-11 09:33] LABS: BUN/Creatinine Ratio 8; Blood Urea Nitrogen 7 mg/dL (9-20); Calcium 8.4 mg/dL (8.4-10.2); Hemolysis Index 5
[2019-01-11] MEDS ORDERED: MAGNESIUM SULFATE 4GM/100ML 4 GM/100 ML BAG IV ONE (10:23)
[2019-01-11] MEDS ORDERED: KPHOS 45 MMOL in NACL 0.9% 500 ML 500 ML IV ONE (10:23)
[2019-01-11] MEDS: D5NS 1,000 ML IV SCH ×2 (10:50→20:23)
[2019-01-12] MEDS: ATIVAN IV PRN ×2 (01:10→20:38)
[2019-01-12] MEDS: NORMODYNE IV PRN (03:58)
[2019-01-12] MEDS: FOLVITE 1 MG, VITAMIN B-1 100 MG, INFUVITE 10 ML in NACL 0.9% 1000 ML 1,000 ML IV SCH (04:28)
[2019-01-12 04:57] LABS: BUN/Creatinine Ratio 7; Blood Urea Nitrogen 4 mg/dL (9-20); Calcium 8.1 mg/dL (8.4-10.2); Hemolysis Index 5
[2019-01-12] MEDS ORDERED: KPHOS 30 MMOL in NACL 0.9% 500 ML 500 ML IV ONE (09:49)
[2019-01-12] MEDS: HABITROL TD SCH (10:26)
[2019-01-12] MEDS: VITAMIN B-1 PO SCH (10:26)
[2019-01-12] MEDS: FOLVITE PO SCH (10:26)
[2019-01-12] MEDS: LOVENOX SUB-Q SCH (10:27)
[2019-01-12] MEDS: SODIUM CHLORIDE FLUSH SYRINGE 10 ML IV SCH ×2 (10:27→21:42)
--- NOTE | 2019-01-12 15:01 | Progress Note ---
Assessment and Plan Assessment and plan: 68 year old male with a history of alcohol abuse. He was brought in by paramedics after he was found at someone's car in the fire station. He was drunk when he was brought in. He was noted to be toxic I'm confused. the patient had had alcohol withdrawal seizure had recently be admitted to the hospital but had left AMA only to be returned by EMS within 48 hours. His family had no idea his whereabouts during that [address] head done on previous admit and was negative Pmh htn, tobacco abuse Acute toxic and metabolicencephalopathy, and hepatic encephalopathy Treat the underlying condition, B1 and folate Alcohol intoxication and alcohol withdrawal IV fluids, ciwa protocol Patient has been counseled on preventative health, greater than 17 minutes spent Patient was counseled on smoking cessation for greater than 10 minutes Hyperkalemia resolved with kayexalate Etoh potomania , hypokalemia, hypomagnesemia and hypophosphatemia Being actively replaced Hypertensive urgency Optimized blood pressure medications dvt ppx chemical History Interval history: has waxing and waning periods of confusion Review of systems Constitutional: No fevers, no malaise, no joint pains CVS: No chest pain, no orthopnea, no dyspnea on exertion, no pedal edema GI: No abdominal pain, no diarrhea, no vomiting, no constipation Respiratory: No shortness of breath, no wheezing, no coughing Hospitalist Physical - Physical exam Narrative exam: General.: Appears well, no distress, nontoxic HEENT: Moist mucous membranes, extraocular muscles intact, no lymphadenopathy Neck: supple Cardiac: S1-S2 heard Lungs: clear to auscultation bilaterally Abdomen: soft , nontender, nondistended, bowel sounds positive Extremities: no edema clubbing or cyanosis Skin: no rash or lesions Neurologic: no focal deficit, waxing and waning periods of confusion Psych: calm, and cooperative - Constitutional Vitals: Temp Pulse Resp BP Pulse Ox 98.7 F 77 20 150/87 99 01/12/19 14:33 01/12/19 14:33 01/12/19 14:33 01/12/19 14:33 01/12/19 14:33 General appearance: Present: no acute distress, other (agitated and in restraints) Results - Labs CBC & Chem 7: 01/10/19 Unknown 01/14/19 07:15 Labs: Laboratory Last Values WBC 6.4 K/mm3 (4.5-11.0) 01/10/19 Unknown RBC 4.00 M/mm3 (3.65-5.03) 01/10/19 Unknown Hgb 13.5 gm/dl (11.8-15.2) 01/10/19 Unknown Hct 39.2 % (35.5-45.6) 01/10/19 Unknown MCV 98 fl (84-94) H 01/10/19 Unknown MCH 34 pg (28-32) H 01/10/19 Unknown MCHC 34 % (32-34) 01/10/19 Unknown RDW 13.1 % (13.2-15.2) L 01/10/19 Unknown Plt Count 127 K/mm3 (140-440) L 01/10/19 Unknown Lymph % (Auto) 12.2 % (13.4-35.0) L 01/10/19 Unknown [place] % (Auto) 9.8 % (0.0-7.3) H 01/10/19 Unknown Eos % (Auto) 0.1 % (0.0-4.3) 01/10/19 Unknown Baso % (Auto) 0.6 % (0.0-1.8) 01/10/19 Unknown Lymph # 0.8 K/mm3 (1.2-5.4) L 01/10/19 Unknown [place] # 0.6 K/mm3 (0.0-0.8) 01/10/19 Unknown Eos # 0.0 K/mm3 (0.0-0.4) 01/10/19 Unknown Baso # 0.0 K/mm3 (0.0-0.1) 01/10/19 Unknown Seg Neutrophils % 77.3 % (40.0-70.0) H 01/10/19 Unknown Seg Neutrophils # 5.0 K/mm3 (1.8-7.7) 01/10/19 Unknown Sodium 136 mmol/L (137-145) L 01/12/19 04:15 Potassium 3.2 mmol/L (3.6-5.0) L 01/12/19 04:15 Chloride 101.5 mmol/L (98-107) 01/12/19 04:15 Carbon Dioxide 22 mmol/L (22-30) 01/12/19 04:15 Anion Gap 16 mmol/L 01/12/19 04:15 BUN 4 mg/dL (9-20) L 01/12/19 04:15 Creatinine 0.6 mg/dL (0.8-1.5) L 01/12/19 04:15 Estimated GFR > 60 ml/min 01/12/19 04:15 BUN/Creatinine Ratio 7 % 01/12/19 04:15 Glucose 105 mg/dL (75-100) H 01/12/19 04:15 Calcium 8.1 mg/dL (8.4-10.2) L 01/12/19 04:15 Phosphorus 1.80 mg/dL (2.5-4.5) L 01/11/19 09:07 Magnesium 1.80 mg/dL (1.7-2.3) 01/12/19 04:15 Total Bilirubin 1.50 mg/dL (0.1-1.2) H 01/10/19 Unknown AST 182 units/L (5-40) H 01/10/19 Unknown ALT 52 units/L (7-56) 01/10/19 Unknown Alkaline Phosphatase 89 units/L (35-129) 01/10/19 Unknown Ammonia 76.0 umol/L (25-60) H 01/12/19 04:15 Total Protein 8.7 g/dL (6.3-8.2) H 01/10/19 Unknown Albumin 4.6 g/dL (3.9-5) 01/10/19 Unknown Albumin/Globulin Ratio 1.1 % 01/10/19 Unknown Plasma/Serum Alcohol < 0.01 % (0-0.07) 01/10/19 Unknown Active Medications - Current Medications Current Medications: Generic Name Dose Route Start Last Admin Trade Name Freq PRN Reason Stop Dose Admin Acetaminophen 650 mg 01/11/19 01:57 Tylenol PO Q4H PRN Pain MILD(1-3)/Fever >100.5/WONG Enoxaparin Sodium 40 mg 01/11/19 10:00 01/12/19 10:27 Lovenox SUB-Q 40 mg DAILY MAITE Administration Folic Acid 1 mg 01/12/19 10:00 01/12/19 10:26 Folvite PO 1 mg QDAY MAITE Administration Dextrose/Sodium Chloride 1,000 mls @ 100 mls/hr 01/11/19 11:00 01/11/19 20:23 D5ns IV 100 mls/hr DIRECT MAITE Administration Potassium Phosphate 30 mmol/ 510 mls @ 85 mls/hr 01/12/19 09:49 01/12/19 10:32 Sodium Chloride IV 01/12/19 15:48 85 mls/hr ONCE ONE Administration Labetalol HCl 10 mg 01/11/19 03:11 01/12/19 03:58 Normodyne IV 10 mg Q6H PRN Administration Blood Pressure Lorazepam 2 mg 01/11/19 02:01 01/11/19 04:00 Ativan IV 2 mg Q1H PRN Administration CIWA-Ar 8-15 Lorazepam 4 mg 01/11/19 02:01 01/12/19 01:10 Ativan IV 4 mg Q1H PRN Administration CIWA-Ar 16-25 Nicotine 14 mg 01/11/19 10:00 01/12/19 10:26 Habitrol TD 14 mg QDAY MAITE Administration Ondansetron HCl 4 mg 01/11/19 01:57 Zofran IV Q8H PRN Nausea And Vomiting Sodium Chloride 10 ml 01/11/19 10:00 01/12/19 10:27 Sodium Chloride Flush Syringe 10 Ml IV 10 ml BID MAITE Administration Sodium Chloride 10 ml 01/11/19 01:57 Sodium Chloride Flush Syringe 10 Ml IV PRN PRN LINE FLUSH Thiamine HCl 100 mg 01/12/19 10:00 01/12/19 10:26 Vitamin B-1 PO 100 mg QDAY MAITE Administration
[2019-01-12] MEDS ORDERED: KCL 40 MEQ in NACL 0.45% 500 ML IV SCH (15:15)
[2019-01-13 05:51] LABS: BUN/Creatinine Ratio 11; Blood Urea Nitrogen 8 mg/dL (9-20); Calcium 8.9 mg/dL (8.4-10.2); Hemolysis Index 13
[2019-01-13] MEDS: HABITROL TD SCH (09:49)
[2019-01-13] MEDS: LOVENOX SUB-Q SCH (09:49)
[2019-01-13] MEDS: VITAMIN B-1 PO SCH (09:49)
[2019-01-13] MEDS: FOLVITE PO SCH (09:49)
[2019-01-13] MEDS: SODIUM CHLORIDE FLUSH SYRINGE 10 ML IV SCH ×3 (09:50→22:09)
[2019-01-13] MEDS: D5NS 1,000 ML IV SCH ×2 (15:02→16:46)
[2019-01-13] MEDS: NORMODYNE IV PRN (20:57)
[2019-01-13] MEDS ORDERED: APRESOLINE IV PRN (21:43)
[2019-01-13] MEDS ORDERED: K-DUR PO ONE (21:45)
--- NOTE | 2019-01-13 21:52 | Progress Note ---
Assessment and Plan Assessment and plan: 68 year old male with a history of alcohol abuse. He was brought in by paramedics after he was found at someone's car in the fire station. He was drunk when he was brought in. He was noted to be toxic I'm confused. the patient had had alcohol withdrawal seizure had recently be admitted to the hospital but had left AMA only to be returned by EMS within 48 hours. His family had no idea his whereabouts during that [address] head done on previous admit and was negative Pmh htn, tobacco abuse Acute toxic and metabolicencephalopathy, and hepatic encephalopathy Treat the underlying conditions, B1 and folate -his states that he is not back to baseline yet Alcohol intoxication and alcohol withdrawal IV fluids, ciwa protocol Patient has been counseled on preventative health, greater than 17 minutes spent Patient was counseled on smoking cessation for greater than 10 minutes Hyperkalemia resolved with kayexalate Etoh potomania , hypokalemia, hypomagnesemia and hypophosphatemia Being actively replaced Hypertensive urgency Optimized blood pressure medications dvt ppx chemical History Interval history: has waxing and waning periods of confusion Review of systems Constitutional: No fevers, no malaise, no joint pains CVS: No chest pain, no orthopnea, no dyspnea on exertion, no pedal edema GI: No abdominal pain, no diarrhea, no vomiting, no constipation Respiratory: No shortness of breath, no wheezing, no coughing Hospitalist Physical - Physical exam Narrative exam: General.: Appears well, no distress, nontoxic HEENT: Moist mucous membranes, extraocular muscles intact, no lymphadenopathy Neck: supple Cardiac: S1-S2 heard Lungs: clear to auscultation bilaterally Abdomen: soft , nontender, nondistended, bowel sounds positive Extremities: no edema clubbing or cyanosis Skin: no rash or lesions Neurologic: no focal deficit, waxing and waning periods of confusion Psych: calm, and cooperative - Constitutional Vitals: Temp Pulse Resp BP Pulse Ox 98.3 F 64 18 202/83 100 01/13/19 20:23 01/13/19 20:57 01/13/19 20:23 01/13/19 20:57 01/13/19 18:05 General appearance: Present: no acute distress, other (agitated and in restraints) Results - Labs CBC & Chem 7: 01/10/19 Unknown 01/14/19 07:15 Labs: Laboratory Last Values WBC 6.4 K/mm3 (4.5-11.0) 01/10/19 Unknown RBC 4.00 M/mm3 (3.65-5.03) 01/10/19 Unknown Hgb 13.5 gm/dl (11.8-15.2) 01/10/19 Unknown Hct 39.2 % (35.5-45.6) 01/10/19 Unknown MCV 98 fl (84-94) H 01/10/19 Unknown MCH 34 pg (28-32) H 01/10/19 Unknown MCHC 34 % (32-34) 01/10/19 Unknown RDW 13.1 % (13.2-15.2) L 01/10/19 Unknown Plt Count 127 K/mm3 (140-440) L 01/10/19 Unknown Lymph % (Auto) 12.2 % (13.4-35.0) L 01/10/19 Unknown [place] % (Auto) 9.8 % (0.0-7.3) H 01/10/19 Unknown Eos % (Auto) 0.1 % (0.0-4.3) 01/10/19 Unknown Baso % (Auto) 0.6 % (0.0-1.8) 01/10/19 Unknown Lymph # 0.8 K/mm3 (1.2-5.4) L 01/10/19 Unknown [place] # 0.6 K/mm3 (0.0-0.8) 01/10/19 Unknown Eos # 0.0 K/mm3 (0.0-0.4) 01/10/19 Unknown Baso # 0.0 K/mm3 (0.0-0.1) 01/10/19 Unknown Seg Neutrophils % 77.3 % (40.0-70.0) H 01/10/19 Unknown Seg Neutrophils # 5.0 K/mm3 (1.8-7.7) 01/10/19 Unknown Sodium 138 mmol/L (137-145) 01/13/19 04:47 Potassium 3.4 mmol/L (3.6-5.0) L 01/13/19 04:47 Chloride 102.5 mmol/L (98-107) 01/13/19 04:47 Carbon Dioxide 21 mmol/L (22-30) L 01/13/19 04:47 Anion Gap 18 mmol/L 01/13/19 04:47 BUN 8 mg/dL (9-20) L 01/13/19 04:47 Creatinine 0.7 mg/dL (0.8-1.5) L 01/13/19 04:47 Estimated GFR > 60 ml/min 01/13/19 04:47 BUN/Creatinine Ratio 11 % 01/13/19 04:47 Glucose 131 mg/dL (75-100) H 01/13/19 04:47 Calcium 8.9 mg/dL (8.4-10.2) 01/13/19 04:47 Phosphorus 3.00 mg/dL (2.5-4.5) 01/13/19 04:47 Magnesium 1.30 mg/dL (1.7-2.3) L 01/13/19 04:47 Total Bilirubin 1.50 mg/dL (0.1-1.2) H 01/10/19 Unknown AST 182 units/L (5-40) H 01/10/19 Unknown ALT 52 units/L (7-56) 01/10/19 Unknown Alkaline Phosphatase 89 units/L (35-129) 01/10/19 Unknown Ammonia 76.0 umol/L (25-60) H 01/12/19 04:15 Total Protein 8.7 g/dL (6.3-8.2) H 01/10/19 Unknown Albumin 4.6 g/dL (3.9-5) 01/10/19 Unknown Albumin/Globulin Ratio 1.1 % 01/10/19 Unknown Plasma/Serum Alcohol < 0.01 % (0-0.07) 01/10/19 Unknown Active Medications - Current Medications Current Medications: Generic Name Dose Route Start Last Admin Trade Name Freq PRN Reason Stop Dose Admin Acetaminophen 650 mg 01/11/19 01:57 Tylenol PO Q4H PRN Pain MILD(1-3)/Fever >100.5/WONG Enoxaparin Sodium 40 mg 01/11/19 10:00 01/13/19 09:49 Lovenox SUB-Q 40 mg DAILY MAITE Administration Folic Acid 1 mg 01/12/19 10:00 01/13/19 09:49 Folvite PO 1 mg QDAY MAITE Administration Hydralazine HCl 10 mg 01/13/19 21:43 Apresoline IV Q4H PRN BP >160/100 Magnesium Sulfate 4 gm in 100 mls @ 25 mls/hr 01/13/19 22:15 Magnesium Sulfate 4gm/100ml IV 01/14/19 02:14 ONCE ONE Labetalol HCl 10 mg 01/11/19 03:11 01/13/19 20:57 Normodyne IV 10 mg Q6H PRN Administration Blood Pressure Lisinopril 40 mg 01/13/19 22:00 Zestril PO QDAY MAITE Lorazepam 2 mg 01/11/19 02:01 01/11/19 04:00 Ativan IV 2 mg Q1H PRN Administration CIWA-Ar 8-15 Lorazepam 4 mg 01/11/19 02:01 01/12/19 20:38 Ativan IV 4 mg Q1H PRN Administration CIWA-Ar 16-25 Nicotine 14 mg 01/11/19 10:00 01/13/19 09:49 Habitrol TD 14 mg QDAY MAITE Administration Ondansetron HCl 4 mg 01/11/19 01:57 01/12/19 20:38 Zofran IV 4 mg Q8H PRN Administration Nausea And Vomiting Potassium Chloride 20 meq 01/13/19 21:45 K-Dur PO 01/13/19 21:46 ONCE ONE Sodium Chloride 10 ml 01/11/19 10:00 01/13/19 20:50 Sodium Chloride Flush Syringe 10 Ml IV 10 ml BID MAITE Administration Sodium Chloride 10 ml 01/11/19 01:57 Sodium Chloride Flush Syringe 10 Ml IV PRN PRN LINE FLUSH Thiamine HCl 100 mg 01/12/19 10:00 01/13/19 09:49 Vitamin B-1 PO 100 mg QDAY MAITE Administration
[2019-01-13] MEDS ORDERED: MAGNESIUM SULFATE 4GM/100ML 4 GM/100 ML BAG IV ONE (22:15)
[2019-01-13] MEDS: ZESTRIL PO SCH (22:31)
[2019-01-14 08:05] LABS: BUN/Creatinine Ratio 10; Blood Urea Nitrogen 9 mg/dL (9-20); Calcium 9.4 mg/dL (8.4-10.2); Hemolysis Index 16
[2019-01-14] MEDS: HABITROL TD SCH (10:05)
[2019-01-14] MEDS: LOVENOX SUB-Q SCH (10:05)
[2019-01-14] MEDS: ZESTRIL PO SCH (10:05)
[2019-01-14] MEDS: VITAMIN B-1 PO SCH (10:06)
[2019-01-14] MEDS: SODIUM CHLORIDE FLUSH SYRINGE 10 ML IV SCH (10:06)
[2019-01-14] MEDS: FOLVITE PO SCH (10:06)
--- NOTE | 2019-01-14 11:58 | Discharge Summary ---
Providers - Providers Date of Admission: 01/11/19 03:14 Attending physician: FRANK ALFONSO MD Primary care physician: JESSICA WHATLEY Hospitalization Reason for admission: alcohol withdrawal Condition: Stable Hospital course: Patient is a 68-year-old -[place] male with a past history of alcohol abuse who was brought to the ED via EMS on account of altered mental status. It was reported that he was found in someone's car at the fire station drinking. No other history could be obtained from the patient. Patient was admitted to the hospital about 2 days ago for possible seizure, however he left AGAINST MEDICAL ADVICE. Patient was admitted to the floor and was managed appropriately for alcohol withdrawal. Patient become alert and oriented. Given the resources and advise for cessation of alcohol. we called his daughter and she says she is going to take him home. Patient discharged home in a stable condition. Disposition: [id number] TO HOME OR SELFCARE Time spent for discharge: 32 minutes - Discharge Diagnoses (1) Alcohol withdrawal Status: Acute Qualifiers: Complication of substance-induced condition: with delirium Qualified Code(s): F10.231 - Alcohol dependence with withdrawal delirium Comment: d/c on ativan (2) Alcoholic encephalopathy Status: Acute (3) Altered mental status Status: Acute Qualifiers: Altered mental status type: unspecified Qualified Code(s): R41.82 - Altered mental status, unspecified (4) Hyperkalemia Status: Acute (5) Increased ammonia level Status: Acute (6) Abnormal head CT Status: Acute (7) Acidosis Status: Acute (8) Acute renal failure Status: Acute Core Measure Documentation - Palliative Care Palliative Care/ Comfort Measures: Not Applicable - Core Measures Any of the following diagnoses?: none Exam - Physical Exam Narrative exam: Not in cardiopulmonary distress. The patient appeared well nourished and normally developed. Vital signs as documented. Head exam is unremarkable. No scleral icterus . Neck is without jugular venous distension, thyromegaly, or carotid bruits. Lungs are clear to auscultation. Cardiac exam reveals regular rate and Rhythm. Abdominal exam reveals normal bowel sounds. Extremities are nonedematous. SENIOR COURT OFFICE ASSISTANT: Alert and oriented 3. No focal weakness. - Constitutional Vitals: Temp Pulse Resp BP Pulse Ox 98.6 F 79 16 132/65 96 01/14/19 08:17 01/14/19 10:05 01/14/19 08:17 01/14/19 10:05 01/14/19 08:44 Plan Activity: no restrictions Weight Bearing Status: Full Weight Bearing Diet: regular Follow up with: JESSICA WHATLEY MD [Primary Care Provider] - 3-5 Days Prescriptions: Folic Acid [Folvite] 1 mg PO QDAY #30 tablet Nicotine [Habitrol] 14 mg TD QDAY #7 patch Thiamine [Vitamin B-1] 100 mg PO QDAY #30 tablet Lisinopril [Zestril TAB] 40 mg PO QDAY #30 tablet
[2019-01-14 14:11] VITALS: BP 110/57
== END 2019-01-14 14:20 | disposition home or self-care (01) | DRG 56 ==
LOC: EEVIPCON 23:13 → ED 23:13 → 2B-ACE 01-11 03:14 → UNDOADMIN 01-11 03:14
PROVIDERS: ADMIT Internal Medicine; ATTEND Internal Medicine
DX: G31.2 Degeneration of nervous system due to alcohol (principal); G92 Toxic encephalopathy; E72.20 Disorder of urea cycle metabolism, unspecified; N17.9 Acute kidney failure, unspecified; E87.1 Hypo-osmolality and hyponatremia; F10.231 Alcohol dependence with withdrawal delirium; E87.2 Acidosis; K70.40 Alcoholic hepatic failure without coma; E87.5 Hyperkalemia; I16.0 Hypertensive urgency; I10 Essential (primary) hypertension; E11.9 Type 2 diabetes mellitus without complications; F10.229 Alcohol dependence with intoxication, unspecified; R56.9 Unspecified convulsions; F17.200 Nicotine dependence, unspecified, uncomplicated; F19.10 Other psychoactive substance abuse, uncomplicated; E83.39 Other disorders of phosphorus metabolism; Z71.6 Tobacco abuse counseling
CPT/HCPCS: 36415; 80048; 80053; 80320; 82140; 83735; 84100; 85025; 93005; 93010; 96365; 96375; G0378; G0480; J1650; J2060; J2405; J3411; J3475; J7030; J7040; J7042